=== PATIENT | male | born 1985 | race Two or more races ===

== ENCOUNTER 2019-06-02 14:24 | Emergency (ER) | payer OTHER ==
[~2019-06-02] VITALS: Ht 157.5 cm; Wt 59.0 kg
[2019-06-02] MEDS ORDERED: HYDROCODONE/ACETAMINOPHEN 5/325MG TABLET PO ONE (15:45)
[2019-06-02 16:58] VITALS: BP 135/72
== END 2019-06-03 01:41 | disposition home or self-care (01) ==
LOC: ER 14:24
DX: S80.01XA Contusion of right knee, initial encounter (principal); V89.9XXA Person injured in unspecified vehicle accident, initial encounter; Y93.89 Activity, other specified; Y92.89 Other specified places as the place of occurrence of the external cause; Y99.8 Other external cause status
CPT/HCPCS: 73562; 99283; L1830